=== PATIENT | female | born 1990 | race Caucasian/White ===

== ENCOUNTER 2016-11-06 14:11 | Emergency (ER) | payer OTHER ==
[2016-09-24 06:21] VITALS: BP 133/75
[~2016-11-06 14:11] MED LIST: AZIT1PAC PO; AZIT250T PO
== END 2016-11-06 15:44 | disposition left against medical advice (07) ==
LOC: ER 14:11
DX: H57.8 Other specified disorders of eye and adnexa (principal); Z53.21 Procedure and treatment not carried out due to patient leaving prior to being seen by health care provider